=== PATIENT | female | born 1965 | race Caucasian/White ===

== ENCOUNTER 2017-04-02 09:22 | Day surgery (SDC) | payer BC ==
--- NOTE | ~2017-04-02 | EGD ---
EGD REPORT [facility] [address] [address] NAME: MELISSA LEMUS : [birth year] [place] [facility] [place] [id number] AGE: 52 ADM/REG DATE : 04/02/17 MR#: [id number] REPORT SERV DATE: 04/02/17 DICTATED BY: RAJINDER DUDLEY DATE: 04/02/17 REPORT STATUS : Draft [facility]ANSCRIBED BY: [facility] DATE: 04/02/17 [facility] Center Patient Name: Melissa Lemus Date of : 1965 Attending MD: RAJINDER DUDLEY, Procedure Date No Time: 04/02/2017 Procedure: Colonoscopy Indications: This is the patient's first colonoscopy, Abdominal pain, Change in bowel habits, Constipation Referring MD: Alessia Irby Medicines: Propofol per Anesthesia Complications: No immediate complications. Estimated blood loss: None. Procedure: Pre-Anesthesia Assessment: - ASA Grade Assessment: II - A patient with mild systemic disease. After I obtained informed consent, the scope was passed under direct vision. Throughout the procedure, the patient's blood pressure, pulse, and oxygen saturations were monitored continuously. The CF [id number] was introduced through the anus and advanced to the cecum, identified by appendiceal orifice and ileocecal valve. The colonoscopy was performed with ease. The patient tolerated the procedure well. The quality of the bowel preparation was good. Findings: The perianal and digital rectal examinations were normal. Non-bleeding internal hemorrhoids were found during retroflexion and were diminuitive and Grade I (internal hemorrhoids that do not prolapse). The exam was otherwise without abnormality. Impression: - Non-bleeding internal hemorrhoids. - The examination was otherwise normal. Recommendation: - Patient has a contact number available for emergencies. The signs and symptoms of potential delayed complications were discussed with the patient. Return to normal activities tomorrow. Written discharge instructions were provided to the patient. - High fiber diet. - Discharge patient to home (with escort). - Continue present medications. - Repeat colonoscopy in 10 years for screening purposes. - Return to GI clinic in 4 weeks. EGD REPORT [address] [place]. [address] NAME: MELISSA LEMUS : [birth year] [place] [facility] [place] [id number] AGE: 52 ADM/REG DATE : 04/02/17 MR#: [id number] REPORT SERV DATE: 04/02/17 DICTATED BY: RAJINDER DUDLEY DATE: 04/02/17 REPORT STATUS : Draft TRANSCRIBED BY: [employer] DATE: 04/02/17 Procedure Code(s): --- Professional --- 78040, Colonoscopy, flexible, proximal to splenic flexure; diagnostic, with or without collection of specimen(s) by brushing or washing, with or without colon decompression (separate procedure) Diagnosis Code(s): --- Professional --- K64.0, First degree hemorrhoids R10.9, Unspecified abdominal pain R19.4, Change in bowel habit K59.00, Constipation, unspecified CPT copyright 2013 [employer]. All rights reserved. The codes documented in this report are preliminary and upon boarding specialist review may be revised to meet current compliance requirements. RAJINDER DUDLEY, 04/02/2017 12:05 PM This report has been signed electronically. Number of Addenda: 0 Note Initiated On: 04/02/2017 11:44 AM Scope Withdrawal Time 0 hours 6 minutes 46 seconds [id number] [address]
--- NOTE | ~2017-04-02 | EGD ---
EGD REPORT [facility] [address] [address] NAME: MELISSA LEMUS : [birth year] [place] : [place] [facility] [place] [facility] [place] PAT#: [id number] AGE: 52 ADM/REG DATE : 04/02/17 MR#: [id number] REPORT SERV DATE: 04/02/17 DICTATED BY: RAJINDER DUDLEY DATE: 04/02/17 REPORT STATUS : Draft TRANSCRIBED BY: [facility] DATE: 04/02/17 Endoscopy Center Patient Name: Melissa Lemus Date of : 1965 Attending MD: RAJINDER DUDLEY, Procedure Date No Time: 04/02/2017 Procedure: Upper GI endoscopy Indications: Epigastric abdominal pain, Dyspepsia Referring MD: Alessia Irby Medicines: Propofol per Anesthesia Complications: No immediate complications. Estimated blood loss: None. Procedure: Pre-Anesthesia Assessment: - ASA Grade Assessment: II - A patient with mild systemic disease. After obtaining informed consent, the endoscope was passed under direct vision. Throughout the procedure, the patient's blood pressure, pulse, and oxygen saturations were monitored continuously. The GIF [id number] was introduced through the mouth, and advanced to the second part of duodenum. The upper GI endoscopy was accomplished with ease. The patient tolerated the procedure well. Findings: The oropharynx was normal. The examined esophagus was normal. The Z-line was found 36 cm from the incisors. Diffuse mild inflammation characterized by congestion (edema) and erythema was found in the gastric body and in the gastric antrum. Biopsies were taken with a cold forceps for histology. Estimated blood loss: none. The duodenal bulb and 2nd part of the duodenum were normal. Impression: - Normal oropharynx. - Normal esophagus. - Z-line 36 cm from the incisors. - Gastritis. Biopsied. - Normal duodenal bulb and 2nd part of the duodenum. Recommendation: - Patient has a contact number available for emergencies. The signs and symptoms of potential delayed complications were discussed with the patient. Return to normal activities tomorrow. Written discharge instructions were provided to the patient. - Regular diet. EGD REPORT [address] [address] NAME: MELISAS LEMUS : [birth year] STATUS : [place] [facility] [place] [facility] [place] PAT#: [id number] AGE: 52 ADM/REG DATE : 04/02/17 MR#: [id number] REPORT SERV DATE: 04/02/17 DICTATED BY: RAJINDER DUDLEY DATE: 04/02/17 REPORT STATUS : Draft TRANSCRIBED BY: [employer] DATE: 04/02/17 - Discharge patient to home (with escort). - Follow an antireflux regimen. - No aspirin, ibuprofen, naproxen, or other non-steroidal anti-inflammatory drugs. - Use Prilosec (omeprazole) 40 mg PO daily. - Await pathology results. - Return to GI clinic in 4 weeks. Procedure Code(s): --- Professional --- 39012, Esophagogastroduodenoscopy, flexible, transoral; with biopsy, single or multiple Diagnosis Code(s): --- Professional --- K29.70, Gastritis, unspecified, without bleeding R10.13, Epigastric pain K30, Functional dyspepsia CPT copyright 2013 [employer]. All rights reserved. The codes documented in this report are preliminary and upon duty officer review may be revised to meet current compliance requirements. RAJINDER DUDLEY, 04/02/2017 11:50 AM This report has been signed electronically. Number of Addenda: 0 Note Initiated On: 04/02/2017 11:25 AM Scope Withdrawal Time 0 hours 0 minutes 0 seconds [id number] [place], [place] [address]
[~2017-04-02 09:22] MED LIST: ADVIL PO; ANTIBIOTIC; COZ50 PO; FLAG500TAB PO; GLUCOPHAGE1000 MG PO; GLUCPH PO; LEVOTHYROXIN50 MCG PO; PRILO PO
== END 2017-04-02 23:59 | disposition home or self-care (01) ==
LOC: DMU 09:22
PROVIDERS: Internal Medicine Gastroenterology
PROC: 0DB68ZX Excision of Stomach, Via Natural or Artificial Opening Endoscopic, Diagnostic (ICD-10-PCS; principal; 2017-04-02 10:30)
PROC: 0DJD8ZZ Inspection of Lower Intestinal Tract, Via Natural or Artificial Opening Endoscopic (ICD-10-PCS; 2017-04-02 10:30)
DX: K29.50 Unspecified chronic gastritis without bleeding (principal); K30 Functional dyspepsia; K64.0 First degree hemorrhoids; R10.9 Unspecified abdominal pain; R19.4 Change in bowel habit; K59.00 Constipation, unspecified; I10 Essential (primary) hypertension; M19.90 Unspecified osteoarthritis, unspecified site; K21.9 Gastro-esophageal reflux disease without esophagitis; E11.9 Type 2 diabetes mellitus without complications; F41.9 Anxiety disorder, unspecified; R35.0 Frequency of micturition; F32.9 Major depressive disorder, single episode, unspecified; E78.00 Pure hypercholesterolemia, unspecified; G43.909 Migraine, unspecified, not intractable, without status migrainosus; Z90.89 Acquired absence of other organs; Z98.891 History of uterine scar from previous surgery; Z90.49 Acquired absence of other specified parts of digestive tract; Z98.51 Tubal ligation status; Z79.899 Other long term (current) drug therapy; Z79.84 Long term (current) use of oral hypoglycemic drugs
CPT/HCPCS: 82962; 84703; 88305; 88342